=== PATIENT | female | born 1950 | race Caucasian/White ===

== ENCOUNTER 2018-03-03 13:44 | Emergency (ER) | payer OTHER ==
[~2018-03-03] VITALS: Ht 157.5 cm; Wt 54.4 kg
--- NOTE | ~2018-03-03 | EKG ---
[address] [address] ELECTROCARDIOGRAM REPORT Name: ALANNAH FAUSTIN Room #: DEP [facility]#: [id number] Admission: 03/03/18 Attend Phys: Discharge: 03/03/18 Date of : 54 Report #: [id number] THIS REPORT FOR: //name// [facility] ED Test Date: 2018-03-03 Test Time: 14:28:35 Pat Name: ALANNAH FAUSTIN Department: Room: Gender: F [employer] Dispatch Clerk: zhen : 1950 Requested By: Brendan Santos Order Number: [id number] MD: Fausto De Leon Measurements Intervals [place] Rate: 71 P: 67 MO: 155 QRS: -25 QRSD: 141 T: 45 QT: 424 QTc: 461 Interpretive Statements Sinus rhythm Right bundle branch block No previous ECG available for comparison Electronically Signed On 03-04-2018 7:50:09 CDT by Fausto De Leon [email or web address] <ELECTRONICALLY SIGNED> By: Fausto De Leon MD 03/04/18 0750 1428 1428 MD CRISTIANA Manrique
[2018-03-03 15:02] LABS: HEMATOCRIT 39.7 % (37.0-47.0); HEMOGLOBIN 13.4 gm/dL (12.0-15.0); MCH 31.8 pg (26.0-34.0); MCHC 33.7 g/dL (28.0-37.0); MCV 94.1 fL (80.0-100.0); RBC 4.22 mil/uL (4.20-5.00); RDW 14.3 % (10.5-14.5); WBC 20.3 thou/uL (4.0-11.0)
[2018-03-03 15:15] LABS: ANION GAP 9 mmol/L (7-16); BUN 20 mg/dL (7-18); CALCIUM 9.4 mg/dL (8.5-10.1); CHLORIDE 103 mmol/L (98-107); CO2 27 mmol/L (21-32); CREATININE 0.8 mg/dL (0.6-1.0); GLUCOSE 106 mg/dL (74-106); POTASSIUM 3.5 mmol/L (3.5-5.1); SODIUM 139 mmol/L (136-145)
[2018-03-03 15:24] LABS: TROPONIN-I < 0.04 ng/mL (<0.06)
[2018-03-03 15:29] LABS: URINE BILIRUBIN NEGATIVE (Negative); URINE BLOOD 1+ (Negative); URINE CLARITY CLEAR; URINE COLOR YELLOW; URINE GLUCOSE-RANDOM* NEGATIVE (Negative); URINE KETONES TRACE (Negative); URINE LEUKOCYTES-REFLEX NEGATIVE (Negative); URINE NITRITE-REFLEX NEGATIVE (Negative); URINE PROTEIN (DIPSTICK) TRACE (Negative); URINE SPECIFIC GRAVITY 1.025 (1.005-1.035); URINE UROBILINOGEN 0.2 E.U./dl (0.2-1.0)
[2018-03-03 15:38] LABS: BACTERIA-REFLEX 1-9 Few /HPF (None Seen); CASTS None Seen /LPF (None Seen); CRYSTALS None Seen /LPF (None Seen); SQUAMOUS 0-3 Few /LPF (0-3); URINE RBC 0-2 Rare /HPF (0-2); URINE WBC-REFLEX 0-5 Rare /HPF (0-5)
[2018-03-03 16:15] VITALS: BP 116/64
== END 2018-03-03 16:14 | disposition home or self-care (01) ==
LOC: ER 13:44
PROVIDERS: Physician Assistant
DX: R55 Syncope and collapse (principal); D72.829 Elevated white blood cell count, unspecified; G43.909 Migraine, unspecified, not intractable, without status migrainosus